=== PATIENT | female | born 1995 | race Caucasian/White ===

== ENCOUNTER 2016-12-21 00:42 | Emergency (ER) | payer OTHER ==
--- NOTE | ~2016-12-21 | CT2 ---
[facility] A Service of [facility] RADIOLOGY TEXT RESULTS PATIENT: CHRISTIN HERRON LOCATION: [facility] : [birth year] UNIT #: [id number] AGE: [address]: Russ Linares DO SEX: F ORDER DR: [id number] [facility] [address] [place], [place] [address] [id number] E MR#: [id number] Acc #: [id number] NAME: CHRISTIN HERRON : 1995 SEX: F STUDY DATE/TIME: 12/21/2016 03:53 UNIT: [facility] ROOM: STUDY DESCRIPTION: CT Abd and Pelv W Cont Attending Physician: Russ Linares D.O. Ordering Physician: Russ Linares D.O. Primary Care Physician: No Primary Care Physician MEDICAL IMAGING REPORT This report is preliminary unless electronic signature is present EXAM Abdomen and pelvis CT, 12/21 at 03:53. INDICATIONS Left side abdominal pain today. TECHNIQUE Axial images were obtained through the abdomen and pelvis following IV contrast administration. Multiplanar reformats were obtained. Comparison made with 09/12/2015. This CT exam was performed with one or more of the following radiation dose reduction techniques: automatic exposure control, adjustment of mA and/or kV according to patient size, and iterative reconstruction. FINDINGS Abdomen: Lung bases are clear. Gallbladder contracted. No biliary obstruction. Solid abdominal organs are normal. No free fluid or adenopathy. Unopacified GI tract is normal. Pelvis: The unopacified GI tract is normal, including the appendix. Urinary bladder is normal. Solid pelvic organs are normal. IMPRESSION Normal CT of the abdomen and pelvis. Dictated by... Duncan Garcia Jr., M.D. THIS IS AN ELECTRONICALLY VERIFIED REPORT Duncan Garcia Jr., M.D. at 12/21/2016 7:22 PM BEN/morales TD: 12/21/2016 07:59 [facility] A Service of [facility] RADIOLOGY TEXT RESULTS PATIENT: CHRISTIN HERRON LOCATION: [facility] #: [id number] : [birth year] UNIT #: [id number] AGE: [address]: Russ Linares DO SEX: F ORDER DR: PABLO #: [id number] MEDICAL IMAGING REPORT Page 1 of 1 COPY
[2016-12-21 02:14] LABS: BASOPHIL# 0.1 X10e3 (0-0.3); BASOPHIL% 0.8 % (0-2.5); DIFF IND NO; EOSINOPHIL# 0.3 X10e3 (0-0.7); EOSINOPHIL% 3.2 % (0.0-7.0); HEMATOCRIT 31.8 % (35.0-45.0); HEMOGLOBIN 10.3 gm/dL (12.0-16.0); LYMPHOCYTE# 3.5 X10e3 (1.0-3.5); LYMPHOCYTE% 34.5 % (17.0-45.0); MEAN CELL VOLUME 74.4 FL (83-96); MEAN CORPUSCULAR HGB CONC 32.3 g/dL (30-36); MEAN PLATELET VOLUME 8.6 FL (6.5-11.5); MONOCYTE# 0.8 X10e3 (0-1.0); MONOCYTE% 8.1 % (3.0-12.0); NEUTROPHIL# 5.4 X10e3 (1.5-7.1); NEUTROPHIL% 53.4 % (40-75); PLATELET COUNT 318 X10e3 (140-420); RED BLOOD COUNT 4.28 X10e (3.90-5.30); RED CELL DISTRIBUTION WIDTH 18.1 % (11.0-15.5)
[2016-12-21 02:16] LABS: URINE SOURCE CLEAN CATCH
[2016-12-21 02:21] LABS: URINE APPEARANCE CLOUDY; URINE BILIRUBIN NEG (NEG); URINE BLOOD NEG (NEG); URINE COLOR YELLOW; URINE GLUCOSE NEG (NEG); URINE KETONE NEG (NEG); URINE LEUKOCYTE ESTERASE NEG (NEG); URINE NITRATE NEG (NEG); URINE PROTEIN NEG (NEG); URINE SPECIFIC GRAVITY 1.022 (1.003-1.035)
[2016-12-21 02:26] LABS: CULTURE INDICATED? NO
[2016-12-21 02:37] LABS: ALBUMIN SERUM 3.8 g/dL (3.5-5.0); BILIRUBIN,TOTAL 0.5 mg/dL (0.2-2.0); CALCIUM SERUM 9.1 mg/dL (8.4-10.2); CREATININE SERUM 0.6 mg/dL (0.6-1.4); GLOM FILT RATE Estimated 128.5 mL/min (>60); POTASSIUM 3.7 mmol/L (3.5-5.1); PROTEIN TOTAL SERUM 6.6 g/dL (6.0-8.3)
[2016-12-21 02:43] LABS: BILIRUBIN, DIRECT 0.1 mg/dL (0.0-0.2); BILIRUBIN,INDIRECT 0.4 mg/dL (0.0-0.9)
== END 2016-12-21 05:47 | disposition home or self-care (01) ==
LOC: CED 00:42
PROVIDERS: Emergency Medicine
DX: N89.8 Other specified noninflammatory disorders of vagina (principal)
CPT/HCPCS: 36415; 74177; 80048; 80076; 81003; 83690; 84703; 85025; 99284; Q9967